=== PATIENT | male | born 1950 | race Caucasian/White ===

== ENCOUNTER 2017-12-19 11:29 | Emergency (ER) | payer OTHER ==
[~2017-12-19] VITALS: Ht 170.2 cm; Wt 73.5 kg
[2017-12-19 11:37] VITALS: BP_SYST 164
[2017-12-19] MEDS ORDERED: PENT400T2 PO (11:54)
[2017-12-19] MEDS ORDERED: D3-50 (11:54)
[2017-12-19] MEDS ORDERED: APIX5TAB PO (11:54)
[2017-12-19] MEDS ORDERED: NS 500 ML IV ONE (12:45)
[2017-12-19 13:48] LABS: BASOPHILS % (AUTO) 0.8 % (0.0-2.0); EOSINOPHILS # (AUTO) 0.1 K/uL (0.0-0.4); HEMATOCRIT 47.6 % (36-54); HEMOGLOBIN 16.1 g/dL (14.0-18.0); LYMPHOCYTES # (AUTO) 1.6 K/uL (1.0-5.5); LYMPHOCYTES % (AUTO) 26.5 % (20.5-51.5); MEAN CORPUSCULAR HEMOGLOBIN 31 pg (27-31); MEAN CORPUSCULAR HGB CONC 34 % (32-36); MEAN CORPUSCULAR VOLUME 92 fL (79.0-98.0); MONOCYTES # (AUTO) 0.5 K/uL (0.0-1.0); MONOCYTES % (AUTO) 7.6 % (1.7-9.3); NEUTROPHILS # (AUTO) 3.8 K/uL (1.8-7.7); NEUTROPHILS % (AUTO) 64.1 % (40.0-70.0); PLATELET COUNT (AUTO) 134 K/uL (130-430); RED BLOOD CELL COUNT(AUTO) 5.17 MIL/uL (4.2-6.2); RED CELL DISTRIBUTION WIDTH 12.7 % (9.0-15.0)
[2017-12-19 13:54] LABS: CALCIUM 8.8 mg/dL (8.4-11.0); CREATININE 0.68 mg/dL (0.55-1.30); POTASSIUM 3.8 mmol/L (3.5-5.1)
[2017-12-19 14:01] LABS: ALBUMIN 3.8 g/dL (3.4-4.8); TOTAL BILIRUBIN 0.6 mg/dL (0.0-1.0)
[2017-12-19 14:06] LABS: INR 1.1 (0.80-1.20); PROTHROMBIN TIME 10.7 SECS (9.5-12.5)
[2017-12-19] MEDS ORDERED: IOHEXOL 350 mgI/mL, 150 ML INFUS..BTL IV ONE (14:25)
[2017-12-19 16:56] VITALS: BP_SYST 160
== END 2017-12-19 16:56 | disposition home or self-care (01) ==
LOC: SED 11:29
DX: M79.662 Pain in left lower leg (principal); M79.661 Pain in right lower leg; Z88.6 Allergy status to analgesic agent; Z86.718 Personal history of other venous thrombosis and embolism
CPT/HCPCS: 36415; 73706; 80053; 82550; 85025; 85610; 85730; 93005; 93970; 96360; 99285; J7040; Q9967

== ENCOUNTER 2018-01-10 23:27 | Emergency (ER) | payer OTHER ==
[~2018-01-10] VITALS: Ht 172.7 cm; Wt 75.7 kg
[~2018-01-10 23:27] MED LIST: APIX5TAB PO; D3-50; PENT400T2 PO
[2018-01-10 23:32] VITALS: BP_SYST 171
[2018-01-11] MEDS ORDERED: MORPHINE 4 MG/ML INJ. SYRINGE IM ONE
[2018-01-11] MEDS ORDERED: NACL 0.9% 1,000 ML IV ONE
[2018-01-11] MEDS: MORPHINE 4 MG/ML INJ. SYRINGE IVP ONE ×2 (00:20→00:43)
[2018-01-11 00:52] LABS: BASOPHILS # (AUTO) 0.1 K/uL (0.0-0.2); BASOPHILS % (AUTO) 1.2 % (0.0-2.0); CALCIUM 8.6 mg/dL (8.4-11.0); CREATININE 0.98 mg/dL (0.55-1.30); EOSINOPHILS # (AUTO) 0.1 K/uL (0.0-0.4); EOSINOPHILS % (AUTO) 1.9 % (0.0-4.0); HEMATOCRIT 47.7 % (36-54); HEMOGLOBIN 15.9 g/dL (14.0-18.0); LYMPHOCYTES # (AUTO) 1.9 K/uL (1.0-5.5); LYMPHOCYTES % (AUTO) 32.3 % (20.5-51.5); MEAN CORPUSCULAR HEMOGLOBIN 31 pg (27-31); MEAN CORPUSCULAR HGB CONC 33 % (32-36); MEAN CORPUSCULAR VOLUME 93 fL (79.0-98.0); MONOCYTES # (AUTO) 0.4 K/uL (0.0-1.0); MONOCYTES % (AUTO) 7.1 % (1.7-9.3); NEUTROPHILS # (AUTO) 3.3 K/uL (1.8-7.7); NEUTROPHILS % (AUTO) 57.5 % (40.0-70.0); PLATELET COUNT (AUTO) 167 K/uL (130-430); POTASSIUM 3.8 mmol/L (3.5-5.1); RED BLOOD CELL COUNT(AUTO) 5.14 MIL/uL (4.2-6.2); RED CELL DISTRIBUTION WIDTH 13.2 % (9.0-15.0); WHITE BLOOD COUNT (AUTO) 5.8 K/uL (4.8-10.8)
[2018-01-11 00:55] LABS: INR 1.1 (0.80-1.20); PROTHROMBIN TIME 10.9 SECS (9.5-12.5)
[2018-01-11 00:57] LABS: ALBUMIN 4.1 g/dL (3.4-4.8); TOTAL BILIRUBIN 0.4 mg/dL (0.0-1.0)
[2018-01-11] MEDS ORDERED: ACETAMINOPHEN 500 MG TABLET PO ONE ×2 (01:30)
[2018-01-11] MEDS ORDERED: MECLIZINE HCL 25 MG TABLET (ANITVERT) PO ONE (02:15)
[2018-01-11 02:41] VITALS: BP_SYST 135
== END 2018-01-11 02:41 | disposition home or self-care (01) ==
LOC: SED 23:27
DX: R42 Dizziness and giddiness (principal); I10 Essential (primary) hypertension; Z86.718 Personal history of other venous thrombosis and embolism; Z88.6 Allergy status to analgesic agent; Z88.8 Allergy status to other drugs, medicaments and biological substances; Z79.899 Other long term (current) drug therapy
CPT/HCPCS: 36415; 80053; 85025; 85610; 85730; 96360; 99284; J2270; J7030; J8597

== ENCOUNTER 2018-02-23 18:25 | Emergency (ER) | payer OTHER ==
[~2018-02-23] VITALS: Ht 167.6 cm; Wt 73.9 kg
[~2018-02-23 18:25] MED LIST changes: +PENT400T12 PO; -PENT400T2 PO
[2018-02-23 18:37] VITALS: BP_SYST 146
--- NOTE | 2018-02-23 18:37 | NUR ---
Patient triaged and placed in waiting room. VSS and patient appears in no acute distress at this time. Accompanied by , awaiting available bed, and MD notified of need for MSE.
--- NOTE | 2018-02-23 18:55 | NUR ---
BROUGHT BACK TO BED #2 AND REPORT GIVEN TO NURSE
--- NOTE | 2018-02-23 19:05 | NUR ---
Patient ambulatory to ED a/o x 4 with multipe complaints. Reports CAGLE and dizziness x 5 months. Patient also c/o left leg pain originating in the calf radiating upwards. Pain worsens with ambulation. Patient prescribed medication for vertigo with minimal relief. +N/V. Per family, "He has been losing memory recently and having trouble concentrating". -CP -SOB
--- NOTE | 2018-02-23 19:10 | NUR ---
ED MD Peck at bedside assessing patient
[2018-02-23 19:33] LABS: BASOPHILS # (AUTO) 0.1 K/uL (0.0-0.2); BASOPHILS % (AUTO) 1.8 % (0.0-2.0); EOSINOPHILS # (AUTO) 0.1 K/uL (0.0-0.4); EOSINOPHILS % (AUTO) 1.4 % (0.0-4.0); HEMATOCRIT 45.9 % (36-54); HEMOGLOBIN 15.3 g/dL (14.0-18.0); LYMPHOCYTES # (AUTO) 1.8 K/uL (1.0-5.5); LYMPHOCYTES % (AUTO) 26.4 % (20.5-51.5); MEAN CORPUSCULAR HEMOGLOBIN 31 pg (27-31); MEAN CORPUSCULAR HGB CONC 33 % (32-36); MEAN CORPUSCULAR VOLUME 92 fL (79.0-98.0); MONOCYTES # (AUTO) 0.5 K/uL (0.0-1.0); MONOCYTES % (AUTO) 7.2 % (1.7-9.3); NEUTROPHILS # (AUTO) 4.4 K/uL (1.8-7.7); NEUTROPHILS % (AUTO) 63.2 % (40.0-70.0); PLATELET COUNT (AUTO) 165 K/uL (130-430); RED BLOOD CELL COUNT(AUTO) 4.99 MIL/uL (4.2-6.2); RED CELL DISTRIBUTION WIDTH 13.5 % (9.0-15.0); WHITE BLOOD COUNT (AUTO) 6.9 K/uL (4.8-10.8)
--- NOTE | 2018-02-23 19:40 | NUR ---
ED MD Guerrier at bedside for medical evaluation.
[2018-02-23 19:50] LABS: CREATININE 0.91 mg/dL (0.55-1.30); POTASSIUM 4.3 mmol/L (3.5-5.1)
[2018-02-23 19:52] LABS: INR 1.1 (0.80-1.20); PROTHROMBIN TIME 10.7 SECS (9.5-12.5)
[2018-02-23 19:55] LABS: ALBUMIN 3.8 g/dL (3.4-4.8); TOTAL BILIRUBIN 0.4 mg/dL (0.0-1.0)
--- NOTE | 2018-02-23 20:20 | NUR ---
Patient ambulatory off unit for CT of head. Accompanied by radiology staff.
[2018-02-23] MEDS ORDERED: NACL 0.9% 1,000 ML IV ONE (20:25)
[2018-02-23] MEDS ORDERED: ONDANSETRON HCL 4 MG/2 ML VIAL IVP ONE (20:30)
[2018-02-23] MEDS ORDERED: MORPHINE 4 MG/ML INJ. SYRINGE IVP ONE (20:30)
--- NOTE | 2018-02-23 20:37 | NUR ---
Patient returned to unit.
--- NOTE | 2018-02-23 20:40 | NUR ---
#22 gauge angiocath placed to RAC. Use of asceptic technique. Opsite placed over site. Blood return noted. Flushed with 10 cc of normal saline. No evidence of infiltration noted. Patient tolerated well.
[2018-02-23 20:43] LABS: BILIRUBIN,URINE NEGATIVE (NEGATIVE); BLOOD, URINE NEGATIVE (NEGATIVE); CLARITY/URINE CLEAR (CLEAR); COLOR,URINE YELLOW (YELLOW); GLUCOSE,URINE NEGATIVE (NEGATIVE); KETONES,URINE NEGATIVE (NEGATIVE); LEUKOCYTE ESTERASE ,URINE NEGATIVE (NEGATIVE); NITRITE, URINE NEGATIVE (NEGATIVE); PROTEIN URINE NEGATIVE (NEGATIVE); UROBILINOGEN,URINE 0.2 (0.2-1.0)
[2018-02-23 20:45] LABS: AMYLASE 48 U/L (0-100); LIPASE 92 U/L (73-393)
--- NOTE | 2018-02-23 21:03 | NUR ---
Medicated per MD orders. IVF infusing with no s/s of infiltration at this time.
[2018-02-23] MEDS ORDERED: MECL12.584 PO (21:22)
--- NOTE | 2018-02-23 22:00 | NUR ---
Medication reconciliation completed with information provided by patient. Any prior medication reconciliation on file was reviewed and corrected.
--- NOTE | 2018-02-23 23:50 | NUR ---
Patient moved to ED bed 6.
--- NOTE | 2018-02-24 00:45 | NUR ---
Patient remains in no acute distress at this time. Verbalizes no needs. Family remains at bedside.
--- NOTE | 2018-02-24 02:41 | NUR ---
Note undone in [facility] - 02/24/18 at 0243 by JORDYN Notified by [facility] that transport is to be arranged at this time. Awaiting call back for confirmation. No ETA at this time. Addendum: 02/24/18 at 0243 by JORDYN Amendment noeone in [facility] - 02/24/18 at 0243 by JORDYN [facility]
--- NOTE | 2018-02-24 02:42 | NUR ---
[facility] CALLED AND SAID SHE WILL BE SETTING UP TRANSPORT AND WILL CALL BACK WITH ALL THE INFO. RN NOTIFIED AND DOCTOR
--- NOTE | 2018-02-24 02:53 | NUR ---
ED MD Guerrier at bedside reassessing patient. Answering questions for family at this time.
--- NOTE | 2018-02-24 03:00 | NUR ---
End of life care decisions discussed with patient by Dr. Guerrier. Opportunity for questions and concerns addressed. Patient's code status is Full Code paperwork completed and placed in chart.
[2018-02-24 03:25] VITALS: BP_SYST 151
--- NOTE | 2018-02-24 03:25 | NUR ---
Patient to be transferred to [facility]. Is being transferred due to higher level of care. Receiving facility has accepting physician and available space. ER physician has signed transfer form. Patient or responsible constitution party has agreed to transfer and signed form. Patient belongings inventoried and will be sent with patient. Copy of nursing notes, lab reports, EKG, Physicians Orders and X-rays to be sent with patient. Report called to [facility] at receiving facility. Receiving physician is Sree Vora. [facility] ambulance service has been called for transfer. ETA to [facility] is 30 min.
== END 2018-02-24 03:25 | disposition short-term general hospital (02) ==
LOC: SED 18:25
DX: R42 Dizziness and giddiness (principal); G93.89 Other specified disorders of brain; I48.91 Unspecified atrial fibrillation; Z86.718 Personal history of other venous thrombosis and embolism; Z88.6 Allergy status to analgesic agent; Z88.8 Allergy status to other drugs, medicaments and biological substances; Z79.899 Other long term (current) drug therapy
CPT/HCPCS: 36415; 70450; 71045; 80053; 81003; 82150; 82550; 83690; 84484; 85025; 85610; 85730; 93005; 96361; 96374; 96375; 99285; J2270; J2405; J7030